=== PATIENT | male | born 2000 | race Hispanic/Latino ===

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

== ENCOUNTER 2023-04-16 19:34 | Emergency (ER) | payer OTHER, SELFPAY ==
[2023-04-16 19:36] VITALS: BP 128/85; PULSE 88; RESP 18; TEMP 36.5; O2SAT 99; BMI 27.4
--- NOTE | 2023-04-16 20:06 | EDS_ITS ---
HPI History of Present Illness Chief Complaint: Laceration Informant: patient Narrative Narrative: Fell while playing basketball, hit his forehead on the pavement, sustaining a laceration and having bleeding. He denies any pain or headache or loss consciousness. No nausea, vomiting, vision changes, focal neurologic symptoms. He sustained some abrasions on his left arm and leg as well, but they are not bothering him. Tetanus Immunization: 5-10 years [facility] Medical History no medical history no medical history Home Medications NK 04/16/23 [History Last Taken Unknown] Allergy/AdvReac Type Severity Reaction Status Date / Time No Known Allergies Allergy Verified 04/16/23 19:36 Surgical History S/P ACL surgery Surgical History no surgical history no surgical history Social History (Updated 04/06/18 @ 11:03 by Hussein Vaughn DO) Smoking Status: Current every day smoker tobacco type: e-cigarettes ROS ROS ED Eyes Eyes: Denies blurry vision or change in vision ENT ENT ED: Reports as per HPI; Denies disequillibrium Gastrointestinal Gastrointestinal: Denies nausea or vomiting Musculoskeletal Musculoskeletal: Denies back pain, extremity pain or neck pain Integumentary Reports Abrasions and laceration Neurologic Neurologic: Denies headache(s), paresthesias or weakness EXAM Physical Exam Const Vital Signs: 04/16/23 19:36 04/16/23 19:51 Temperature 97.7 F L Temperature Source Temporal Pulse Rate 88 Respiratory Rate 18 Respiratory Effort Normal Non-Labored Respiratory Depth Normal Respiratory Pattern Normal Blood Pressure 128/85 H Blood Pressure Mean 99 Pulse Ox 99 Oxygen Delivery Method Room Air Room Air Positive well nourished General Appearance ED: NAD HEENT Reports TM's clear HEENT Narrative: Laceration with mild tenderness 2 cm jagged over the left eyebrow laterally with overlying abrasion, no associated hematoma, crepitance, depression or other signs of trauma. trauma and tenderness Tympanic Membrane ED: Yes TM's clear Eyes PERRL and EOMs intact bilaterally Visual Acuity: other Other Details: no entrapment or pain with extraocular movements Neck full ROM and supple Chest Wall inspection of chest normal Chest: symmetrical chest wall rise Resp normal respiratory effort and clear to auscultation bilaterally Percussion: other equal BS bilat Cardio no murmurs Rate: regular rate Rhythm: regular rhythm GI normal to inspection, nondistended, normoactive bowel sounds, soft to palpation and non-tender Extremity full ROM Extremity Narrative: x4 General Extremety ED: Negative for tenderness Neuro oriented x3, CN's II-XII intact bilaterally, moves all extremities, no focal motor deficits and no sensory deficits noted [place] Coma Scale: document GCS findings Spontaneous Obeys Commands Oriented 15 Sensorium / Orientation: awake and alert Psych mental status grossly normal and thought process normal Skin Skin Narrative: Abrasions to left shoulder, left forearm, left knee. 2 cm laceration left forehead see above. Rashes: no rashes PROC Procedures Lacerations L forehead: Length: 2 cm Depth: Sub Q Shape: irreg linear Prep: Sterile Conditions and Chlorhexadine Laceration repair: Irrigated, Lidocaine with epi (2cc), Local and Skin sutures Irrigated (ml): 60 Number of Sutures/[place]: 4 Suture Information: Ethilon, Simple and 6-0 MDM MDM MDM Narrative Medical decision making narrative: Facial laceration repaired, he did develop a little bit of a headache I do not think he needs to have a CT, he meets Phillips head trauma CT rule criteria for observation. Other abrasions were cleansed and dressed with bacitracin, yepez pportive care advised sutures out in 5 or 6 days. Discharge Plan Triage Chief Complaint: Laceration ED Provider: Grant Mcmillan Dx/Rx/DC Orders Clinical Impression: Facial laceration, Abrasions of multiple sites Instructions: ED Abrasion, ED FACIAL LACERATION Suture Tape Prescriptions: No Action NK Primary Care Provider: Naveen Nichols Referrals: Naveen Nichols DO [Primary Care Provider] - 5 Days for suture removal Disposition Disposition: Home, Self Care
[2023-04-16] MEDS: Diphth,Pertuss(Acell),Tet Vac 0.5 ML Vial IM (20:14)
[2023-04-16] MEDS: Lidocaine/Epi/Tetracaine 50 ML 1 APPLIC TOPICAL (20:15)
== END 2023-04-16 21:54 | disposition home or self-care (01) ==
PROVIDERS: Emergency Provider Emergency Medicine; PCP Pediatrics; Visit Provider Emergency Medicine
DX: S01.81XA Laceration without foreign body of other part of head, initial encounter (principal); F17.210 Nicotine dependence, cigarettes, uncomplicated; S50.812A Abrasion of left forearm, initial encounter; W17.89XA Other fall from one level to another, initial encounter; Y93.67 Activity, basketball; Y92.310 Basketball court as the place of occurrence of the external cause; Z23 Encounter for immunization
CPT/HCPCS: 12011; 90471; 90715; 99283